=== PATIENT | female | born 1985 | race Caucasian/White ===

== ENCOUNTER 2019-01-19 10:17 | Emergency (ER) | payer BC, OTHER ==
[2019-01-19 10:23] VITALS: TEMP 98.2; BMI 42.1
[2019-01-19] MEDS ORDERED: ACETAMINOPHEN 1000 MG/100 ML VIAL (NON FORMULARY) IVPB ONE (11:40)
[2019-01-19] MEDS ORDERED: SODIUM CHLORIDE 1,000 ML IV STA (11:40)
--- NOTE | 2019-01-19 11:40 | PDOC ---
History of Present Illness - General History Source: Patient Exam Limitations: No Limitations - History of Present Illness Initial Comments: 33 yo F no significant PMH presents with B/L pelvic pain. Denies N/V/D, f/c, rectal bleeding, dysuria, vaginal discharge. She was evaluated by electrical maintenance engineer, who sent urine, obtained pelvic sono, no explanation for the pain. Referred to the ED for further evaluation, as the pain is worsening. <Racheal Tse - Last Filed: 01/19/19 11:41> <Shilpa Barrientos - Last Filed: 01/19/19 18:22> - General Chief Complaint: Pain Stated Complaint: LWR ABD PAIN Time Seen by Provider: 01/19/19 11:27 Past History - Past Medical History COPD: No - Suicide/Smoking/Psychosocial Hx Smoking History: Never smoked Have you smoked in the past 12 months: No Information on smoking cessation initiated: No Hx Alcohol Use: No Drug/Substance Use Hx: No <Racheal Tse - Last Filed: 01/19/19 11:41> <Shilpa Barrientos - Last Filed: 01/19/19 18:22> - Past Medical History Allergies/Adverse Reactions: Allergies Allergy/AdvReac Type Severity Reaction Status Date / Time No Known Allergies Allergy Verified 02/04/18 01:31 Home Medications: Ambulatory Orders Ibuprofen 600 mg PO QID PRN #20 tablet 02/04/18 Loratadine [Claritin] 10 mg PO PRN 02/04/18 Ibuprofen 800 mg PO TID PRN #21 tablet MDD 3 tabs 01/19/19 Review of Systems - Review of Systems Able to Perform ROS?: Yes Comments:: GENERAL/CONSTITUTIONAL: No fever or chills. No weakness. HEAD, EYES, EARS, NOSE AND THROAT: No change in vision. No ear pain or discharge. No sore throat. CARDIOVASCULAR: No chest pain or shortness of breath. RESPIRATORY: No cough, wheezing, or hemoptysis. GASTROINTESTINAL: No nausea, vomiting, diarrhea or constipation. +Urge to defecate. GENITOURINARY: No dysuria, frequency, or change in urination. MUSCULOSKELETAL: No joint or muscle swelling or pain. No neck or back pain. SKIN: No rash. NEUROLOGIC: No headache, vertigo, loss of consciousness, or change in strength/ sensation. ENDOCRINE: No increased thirst. No abnormal weight change. HEMATOLOGIC/LYMPHATIC: No anemia, easy bleeding, or history of blood clots. ALLERGIC/IMMUNOLOGIC: No hives or skin allergy. <Racheal Tse - Last Filed: 01/19/19 11:41> *Physical Exam - Vital Signs Last Vital Signs Temp Pulse Resp BP Pulse Ox 98.2 F 88 18 140/77 100 01/19/19 10:19 01/19/19 10:19 01/19/19 10:19 01/19/19 10:19 01/19/19 10:19 - Physical Exam Comments: GENERAL: Awake, alert, and fully oriented, in no acute distress. Appears uncomfortable. HEAD: No signs of trauma EYES: PERRLA, EOMI, sclera anicteric, conjunctiva clear ENT: Auricles normal inspection, hearing grossly normal, nares patent, oropharynx clear without exudates. Moist mucosa NECK: Normal ROM, supple, no lymphadenopathy, JVD, or masses LUNGS: Breath sounds equal, clear to auscultation bilaterally. No wheezes, and no crackles HEART: Regular rate and rhythm, normal S1 and S2, no murmurs, rubs or gallops ABDOMEN: Soft, BLQ tenderness with guarding, normoactive bowel sounds. No rebound. No masses EXTREMITIES: Normal range of motion, no edema. No clubbing or cyanosis. No cords, erythema, or tenderness NEUROLOGICAL: Cranial nerves II through XII grossly intact. Normal speech, normal gait. Motor and sensation intact SKIN: Warm, Dry, normal turgor, no rashes or lesions noted. <Racheal Tse - Last Filed: 01/19/19 11:41> - Vital Signs Last Vital Signs Temp Pulse Resp BP Pulse Ox 98.2 F 88 18 140/77 100 01/19/19 10:19 01/19/19 10:19 01/19/19 10:19 01/19/19 10:19 01/19/19 10:19 <Shilpa Barrientos - Last Filed: 01/19/19 18:22> Moderate Sedation - Procedure Monitoring Vital Signs: Procedure Monitoring Vital Signs Temperature 98.2 F 01/19/19 10:19 Pulse Rate 88 01/19/19 10:19 Respiratory Rate 18 01/19/19 10:19 Blood Pressure 140/77 01/19/19 10:19 O2 Sat by Pulse Oximetry (%) 100 01/19/19 10:19 <Racheal Tse - Last Filed: 01/19/19 11:41> - Procedure Monitoring Vital Signs: Procedure Monitoring Vital Signs Temperature 98.2 F 01/19/19 10:19 Pulse Rate 88 01/19/19 10:19 Respiratory Rate 18 01/19/19 10:19 Blood Pressure 140/77 01/19/19 10:19 O2 Sat by Pulse Oximetry (%) 100 01/19/19 10:19 <Shilpa Barrientos - Last Filed: 01/19/19 18:22> ED Treatment Course - LABORATORY CBC & Chemistry Diagram: 01/19/19 11:53 01/19/19 11:53 - ADDITIONAL ORDERS Additional order review: Laboratory Results 01/19/19 01/19/19 01/19/19 16:20 11:53 11:23 Sodium 135 L Potassium 5.5 H Chloride 105 Carbon Dioxide 24 Anion Gap 6 L BUN 11 Creatinine 0.6 Creat Clearance w eGFR > 60 Random Glucose 97 Calcium 8.9 Total Bilirubin 0.3 AST 44 H ALT 31 Alkaline Phosphatase 101 Total Protein 7.4 Albumin 3.4 Lipase 156 Urine Color Yellow Cancelled Urine Appearance Clear Cancelled Urine pH 5.5 Cancelled Ur Specific [place] 1.005 L Cancelled Urine Protein Negative Cancelled Urine Glucose (UA) Negative Cancelled Urine Ketones Negative Cancelled Urine Blood Trace H Cancelled Urine Nitrite Negative Cancelled Urine Bilirubin Negative Cancelled Urine Urobilinogen 0.2 Cancelled Ur Leukocyte Esterase Negative Cancelled Urine WBC (Auto) 0-3 Urine RBC (Auto) 0-3 Ur Epithelial Cells 2+ Urine Bacteria 1+ Urine Mucus 1+ Urine HCG, Qual Negative 01/19/19 11:53 RBC 5.01 MCV 80.9 MCHC 33.4 RDW 13.6 MPV 9.6 Neutrophils % 50.0 D Lymphocytes % 40.1 H Monocytes % 5.6 Eosinophils % 3.5 Basophils % 0.8 - Medications Given in the ED: ED Medications Discontinued Medications Generic Name Dose Route Start Last Admin Trade Name Freq PRN Reason Stop Dose Admin Acetaminophen 1,000 mg 01/19/19 11:40 01/19/19 12:03 Ofirmev Injection - IVPB 01/19/19 11:41 1,000 mg ONCE ONE Administration Sodium Chloride 1,000 mls @ 1,000 mls/hr 01/19/19 11:40 01/19/19 12:03 Normal Saline - IV 01/19/19 12:39 1,000 mls/hr ASDIR STA Administration Oxycodone HCl 5 mg 01/19/19 16:32 01/19/19 16:38 Roxicodone - PO 01/19/19 16:33 5 mg ONCE ONE Administration <Shilpa Barrientos - Last Filed: 01/19/19 18:22> *DC/Admit/Observation/Transfer <Racheal Tse - Last Filed: 01/19/19 11:41> <Shilpa Barrientos - Last Filed: 01/19/19 18:22> Diagnosis at time of Disposition: Pelvic pain - Discharge Dispostion Disposition: HOME Condition at time of disposition: Stable - Prescriptions Prescriptions: Ibuprofen 800 mg PO TID PRN #21 tablet MDD 3 tabs PRN Reason: Pain Level 6-10 - Patient Instructions Printed Discharge Instructions: DI for Pelvic Pain Additional Instructions: please followup with your plug saw operator hand picker your medication at the [facility] Print Language: SPA
[2019-01-19] MEDS ORDERED: ACETAMINOPHEN INJECTION 100 ML IVPB ONE (11:45)
[2019-01-19 12:06] LABS: BASO % 0.8 % (0-2.0); EOS % 3.5 % (0-4.5); HEMATOCRIT 40.5 % (32.4-45.2); HEMOGLOBIN 13.6 GM/dL (10.7-15.3); LYMPH % 40.1 % (8-40); MCHC 33.4 g/dl (32.0-36.0); MEAN CELL VOLUME 80.9 fl (80-96); MEAN PLT VOLUME 9.6 fl (7.5-11.1); MONO % 5.6 % (3.8-10.2); PLATELET COUNT 279 K/MM3 (134-434); RBC 5.01 M/mm3 (3.60-5.2); RDW 13.6 % (11.6-15.6); WHITE BLOOD COUNT 8.3 K/mm3 (4.0-10.0)
[2019-01-19 12:44] LABS: ALBUMIN 3.4 g/dl (3.4-5.0); ALK PHOS 101 U/L (45-117); ANION GAP 6 MMOL/L (8-16); BILIRUBIN,TOTAL 0.3 mg/dL (0.2-1); BLOOD UREA NITROGEN 11 mg/dL (7-18); CALCIUM 8.9 mg/dL (8.5-10.1); CHLORIDE 105 mmol/L (98-107); CO2 24 mmol/L (21-32); CREATININE 0.6 mg/dL (0.55-1.3); GLUCOSE,RANDOM 97 mg/dL (74-106); LIPASE 156 U/L (73-393); POTASSIUM 5.5 mmol/L (3.5-5.1); SGOT/AST 44 U/L (15-37); SGPT/ALT 31 U/L (13-61); SODIUM 135 mmol/L (136-145); TOT PROT 7.4 g/dl (6.4-8.2)
[2019-01-19] MEDS ORDERED: oxyCODONE HCL 5 MG TABLET PO ONE (16:32)
[2019-01-19] MEDS ORDERED: oxyCODONE HCL 5 MG TABLET ONE (16:37)
[2019-01-19 17:47] LABS: PH,URINE 5.5 (5.0-8.0); URINE APPEARANCE CLEAR; URINE BILIRUBIN NEGATIVE (<2.0 mg/dL); URINE COLOR YELLOW; URINE GLUCOSE (UA) NEGATIVE (NEGATIVE); URINE KETONE NEGATIVE (NEGATIVE); URINE NITRITE NEGATIVE (NEGATIVE); URINE PROTEIN NEGATIVE (NEGATIVE); URINE UROBILINOGEN 0.2 mg/dL (0.2-1.0)
[2019-01-19 17:48] LABS: EPI CELLS 2+ /HPF (FEW); URINE BACTERIA 1+ /hpf (NONE SEEN); URINE LEUK ESTERASE NEGATIVE (NEGATIVE)
[2019-01-19 17:49] LABS: URINE MUCUS 1+
[2019-01-19 18:33] VITALS: BP 135/75; PULSE 94
== END 2019-01-19 18:34 | disposition home or self-care (01) ==
LOC: JER 10:17
PROC: 3E033NZ Introduction of Analgesics, Hypnotics, Sedatives into Peripheral Vein, Percutaneous Approach (ICD-10-PCS; principal; 2019-01-19)
DX: R10.2 Pelvic and perineal pain (principal)
CPT/HCPCS: 36415; 74177-TC; 80053; 81003; 81015; 83690; 84703; 85025; 87086; 99283-25; J0131; J7030

== ENCOUNTER 2019-01-29 13:15 | Day surgery (SDC) | payer OTHER ==
[2019-01-28 15:33] VITALS: BMI 42.1
[2019-01-29] MEDS ORDERED: KETOROLAC TROMETHAMINE 30 MG/1 ML VIAL ONE (13:46)
[2019-01-29] MEDS ORDERED: ceFAZolin SODIUM 1 GM VIAL ONE (13:46)
[2019-01-29] MEDS ORDERED: SODIUM CHLORIDE 0.9% P/F 10 ML VIAL IJ ONE (13:46)
[2019-01-29] MEDS ORDERED: DEXAMETHASONE SOD PHOSPHATE 4 MG/1 ML VIAL ONE (13:46)
[2019-01-29] MEDS ORDERED: LIDOCAINE HCL/PF 2% SDV 5ML VIAL ONE ×2 (13:46→13:57)
[2019-01-29] MEDS ORDERED: PROPOFOL 20 ML ONE ×2 (13:48→16:03)
[2019-01-29] MEDS ORDERED: SUCCINYLCHOLINE CHLORIDE 200 MG/10 ML VIAL ONE (13:48)
[2019-01-29] MEDS ORDERED: MIDAZOLAM HCL 2 MG/2 ML SINGLE DOSE VIAL ONE (13:49)
[2019-01-29] MEDS ORDERED: ROCURONIUM BROMIDE 50 MG/5 ML VIAL ONE (13:49)
[2019-01-29] MEDS ORDERED: BUPIVACAINE HCL/PF 0.5% (5MG/ML) 10 ML VIAL ONE (13:53)
[2019-01-29] MEDS ORDERED: ONDANSETRON 4 MG/2 ML VIAL IVPUSH PRN ×2 (15:27→17:48)
[2019-01-29] MEDS ORDERED: oxyCODONE HCL 5 MG TABLET PO PRN ×2 (15:27→17:48)
[2019-01-29] MEDS ORDERED: ACETAMINOPHEN 1000 MG/100 ML VIAL (NON FORMULARY) IVPB ONE (15:27)
[2019-01-29] MEDS ORDERED: LACTATED RINGERS SOLUTION 1,000 ML IV SCH (15:30)
[2019-01-29] MEDS ORDERED: GLYCOPYRROLATE 0.2 MG/1 ML VIAL ONE (15:31)
[2019-01-29] MEDS ORDERED: NEOSTIGMINE METHYLSULFATE 0.5 MG/ML - 10 ML MDV ONE (15:32)
--- NOTE | 2019-01-29 16:20 | OP ---
Operative Note - Note: Operative Date: 01/29/19 Pre-Operative Diagnosis: pelvic pain Operation: intraoperative consultation Findings: calcified epiploic appendage of the sigmoid and 5 mm anterior sigmoid avulsed adhesion. Post-Operative Diagnosis: Same as Pre-op Surgeon: Kentrell Treviño Anesthesia: General Specimens Removed: none Estimated Blood Loss (mls): 0
[2019-01-29] MEDS ORDERED: DESFLURANE GAS 240 ML BOTTLE IH ONE (16:34)
[2019-01-29] MEDS ORDERED: IBUPROFEN 800 MG/8 ML IJ IVPB PRN (17:48)
[2019-01-29] MEDS ORDERED: IBUPROFEN 600 MG TABLET (FP) PO PRN (17:48)
[2019-01-29] MEDS ORDERED: ELECTROLYTE-148 SOLN 1,000 ML IV SCH (18:00)
--- NOTE | 2019-01-29 18:24 | OP ---
DATE OF OPERATION: 01/29/2019 PREOPERATIVE DIAGNOSIS: Pelvic pain. POSTOPERATIVE DIAGNOSIS: Pelvic pain. PROCEDURE: Intraoperative general sugery consultation. SURGEON: Kentrell Treviño MD OPERATIVE FINDINGS: I was called to the operating room by Dr. Fox Echols for evaluation of the patient's sigmoid colon just after the performance of a right laparoscopic ovarian cystectomy. The findings at the time of my consultation were a calcified epiploic appendage of the sigmoid colon and a 5-mm anterior sigmoid probable avulsed adhesion. The rest of the findings were unremarkable. There was no active bleeding, and the rest of the findings were unremarkable. PROCEDURE: With the patient already under general anesthesia and laparoscopic RISK MANAGEMENT DIRECTOR surgery, exploration was carried out, and the previously noted findings were observed. At this point, I left the operating room, and the rest of the procedure was carried out by the Gynecological surgeons, Dr. Echols and Dr. Hall. ESTIMATED BLOOD LOSS: None. REPLACEMENTS: None. SPECIMENS: None from General Surgery. I, Kentrell Treviño MD, was physically present in the operating room from the time I was called until completion of my intraoperative consultation. MD JOSH [id number]
[2019-01-29] MEDS ORDERED: oxyCODONE HCL 5 MG TABLET PO ONE ×2 (19:10→20:00)
--- NOTE | 2019-01-29 19:45 | HP ---
History & Physical Update - History History: No Change - Physical Physical: No Change - Assessment Assessment: No Change - Plan Plan: No Change (H&P reviwed , no changes , for laparoscopy rt ovarian cystectomy, all necessary procedure)
--- NOTE | 2019-01-29 19:51 | OP ---
Operative Note - Note: Operative Date: 01/29/19 Pre-Operative Diagnosis: chronic pelvic pain, RT ovarian cyst, r/o PID, vs endometriosis Operation: laparoscopy, RT ovarian cystectomy, intra op surgical consult Findings: small rt ovarian cyst 3 cm epiploic adhesion anterior sigmoid adherent to posterior uterus Surgeon: Fox Echols Neurophysiologist: German Hall Anesthesiologist/MAINTAINER PLANT: You Claire Anesthesia: General Estimated Blood Loss (mls): 50 Blood Volume Replaced (mls): 0 Operative Report Dictated: Yes
[2019-01-29] MEDS ORDERED: oxyCODONE HCL 5 MG TABLET ONE (19:57)
[2019-01-29 20:40] VITALS: BP 133/76; PULSE 90; TEMP 98
--- NOTE | 2019-01-29 21:38 | OP ---
DATE OF OPERATION: 01/29/2019 PREOPERATIVE DIAGNOSES: Chronic pelvic pain, right ovarian cyst, rule out right hydrosalpinx, rule out endometriosis. POSTOPERATIVE DIAGNOSES: Right ovarian cyst and epiploic of the anterior sigmoid colon to the posterior uterine wall. SURGEON: Carloz Church MD ASSISTANT HAIRSTYLIST: German Hall MD ANESTHESIA: General. ANESTHESIOLOGIST: ROMAINE Mendez ESTIMATED BLOOD LOSS: 50 mL. OPERATION: The patient was taken to the operating room. In adequate dorsal lithotomy position, examination under anesthesia revealed external genitalia to be normal, vagina was normal. Cervix was clean; no lesions. Uterus was normal size. Adnexa, no masses were palpable. Then, with the weighted speculum in the vagina, the anterior lip of the cervix was grasped with a single-toothed tenaculum and the uterine cavity was sound to 8 cm. Hulka was introduced into the uterine cavity for manipulation and then Siddiqi was inserted and patient was prepped and draped for a pelvoscopy. A small infraumbilical incision was made with the knife and then 5-mm Visiport under direct vision was inserted and then the patient was placed in deep lithotomy position and camera was introduced. Then, under direct vision, a 5-mm trocar was introduced through the left hypogastrium and another 5-mm trocar through the right hypogastric area. Then, upper abdomen was checked. Bowels were pushed up. There was a small 5-mm epiploic calcified to the anterior sigmoid, which was adherent to the posterior uterine wall, and during the uterine manipulation, the epiploic came off the anterior sigmoid. Then, both tubes were normal. No cul-de-sac adhesion. Bladder was normal. No sign of endometriosis. There was a 3-cm right ovarian cyst and the right ovary was elongated with the cyst at the end of the ovary. Upper abdomen was checked and no adhesions were seen. Then, the right ovary was grasped with a grasper and, then, with the LigaSure cautery, the cyst was removed from the right ovary and the left ovary appeared to be normal. Pelvic cavity was several times irrigated. No active bleeding was seen. Then, Dr. Treviño, surgeon, was called in for intraoperative consultation and evaluation of the anterior wall of the sigmoid where the epiploic adhesion appears to have come off. No active bleeding or bubbling seen at this site. Dr. Treviño evaluated the area and manipulated it and there was no evidence of tear. No bleeding was seen. Then, Dr. Treviño okayed the termination of the procedure and then the procedure was terminated. The abdomen was emptied of all the gases and the ports were closed with interrupted suture of 3-0 Vicryl and the skin was closed with Dermabond glue. The patient tolerated the procedure well and left the OR in good condition. CARLOZ CHURCH M.D. [id number]
--- NOTE | 2019-02-02 12:10 | PATH ---
Surgical Pathology Report Patient Name: ALTAGRACIA MARROQUIN [facility]. Rec. #: [id number] /Age/Gender: 1985 (Age: 33) / F Account: [id number] Location: [facility] SURGICAL Taken: 01/29/2019 Received: 01/30/2019 Reported: 02/02/2019 Physicians: Fox Echols M.D. Specimen(s) Received CYST, RIGHT OVARIAN Clinical History Chronic salpingitis, pelvic pain Final Diagnosis RIGHT OVARIAN CYST, CYSTECTOMY: BENIGN OVARIAN AND FIBROUS TISSUE WITH EXTENSIVE THERMAL ARTIFACT, AND FOCAL AREA SUGGESTIVE OF ENDOMETRIOSIS. Electronically Signed Grayson Bone M.D. Gross Description Received in formalin labeled "ovarian cyst right side," is a 0.9 x 0.7 x 0.1 cm graves portion of soft tissue, possibly consistent with a portion of cyst. The specimen is trisected and entirely submitted in one cassette. /01/30/2019 saudi01/30/2019
== END 2019-01-29 20:35 | disposition home or self-care (01) ==
LOC: JASU-SURG 13:15
PROVIDERS: ATTEND Obstetrics & Gynecology
PROC: 0UB04ZZ Excision of Right Ovary, Percutaneous Endoscopic Approach (ICD-10-PCS; principal; 2019-01-29 14:30)
DX: N83.201 Unspecified ovarian cyst, right side (principal); K63.89 Other specified diseases of intestine
CPT/HCPCS: 84703; 88304-TC; 94760; J0131

== ENCOUNTER 2019-06-10 13:24 | Emergency (ER) | payer OTHER ==
[2019-06-10 13:35] VITALS: TEMP 98.7; BMI 42.5
--- NOTE | 2019-06-10 13:45 | PDOC ---
Rapid Medical Evaluation Chief Complaint: Bite Time Seen by Provider: 06/10/19 13:32 Medical Evaluation: Allergies Allergy/AdvReac Type Severity Reaction Status Date / Time No Known Drug Allergies Allergy Verified 01/29/19 19:27 FRUIT AdvReac Unknown Rash Uncoded 01/29/19 17:56 Vital Signs Temp Pulse Resp BP Pulse Ox 98.7 F 119 H 18 126/87 96 06/10/19 13:33 06/10/19 13:33 06/10/19 13:33 06/10/19 13:33 06/10/19 13:33 06/10/19 13:36 I have performed a brief in-person evaluation of this patient. The patient presents with a chief complaint of:stung by bee to L arm several days ago, now w/ swelling/redness, no f/c. H/o DM Pertinent physical exam findings: tachy to 111 w/ LUE w/ localized swelling/ redness/ttp I have ordered the following:labs The patient will proceed to the ED for further evaluation. 06/10/19 13:46 Discharge Disposition - Diagnosis Cellulitis Qualifiers: Site of cellulitis: extremity Site of cellulitis of extremity: upper extremity Laterality: left Qualified Code(s): L03.114 - Cellulitis of left upper limb - Discharge Dispostion Condition at time of disposition: Stable - Referrals - Patient Instructions - Post Discharge Activity
[2019-06-10] MEDS ORDERED: SODIUM CHLORIDE 1,000 ML IV STA (14:03)
[2019-06-10] MEDS ORDERED: ACETAMINOPHEN 1000 MG/100 ML VIAL (NON FORMULARY) IVPB ONE (14:04)
[2019-06-10] MEDS ORDERED: VANCOMYCIN 1 GM in D5W (PRE-DOCKED) 1,000 MG/250 ML IVPB ONE (14:08)
[2019-06-10] MEDS ORDERED: diphenhydrAMINE HCL 25 MG CAPSULE (FP) PO ONE ×3 (14:20→14:50)
--- NOTE | 2019-06-10 14:31 | PDOC ---
History of Present Illness - History of Present Illness Initial Comments: 06/10/19 14:26 34F with pmh of DM2 presents with circular, painful rash over the left forearm after getting stung by a bumblebee (or some other related Hymenoptera-type insect) on Saturday. She saw the insect after the sting and tried to scratch off the sting with her nail. Last night she noticed the rash had spread outwardly and measure her fever orally at 103F. She took 500mg Acetaminophen and 25mg Benadryl at 6:30am this morning which gave her some relief, before presenting to the ER. Denies shortness of breath, chest pain, dysphagia, abdominal pain, vomiting or diarrhea. Measure her blood glucose this am which was 200, unusually high for her. Allery to all fruits, which give her anaphylactic shock <Darin Cano - Last Filed: 06/10/19 16:21> <Leonora Stevens - Last Filed: 06/10/19 16:26> - General Chief Complaint: Bite Stated Complaint: BEE STING Time Seen by Provider: 06/10/19 13:32 Past History - Past Medical History Anemia: No Asthma: No Cancer: No Cardiac Disorders: No CVA: No COPD: No CHF: No Dementia: No Diabetes: Yes GI Disorders: No Disorders: No HTN: No Hypercholesterolemia: Yes Liver Disease: No Seizures: No Thyroid Disease: No - Surgical History Abdominal Surgery: No Appendectomy: Yes (AT AGE 13) Cardiac Surgery: No Cholecystectomy: No Lung Surgery: No Neurologic Surgery: No Orthopedic Surgery: No - Immunization History Immunization Up to Date: No - Suicide/Smoking/Psychosocial Hx Smoking History: Never smoked Have you smoked in the past 12 months: No Information on smoking cessation initiated: No Hx Alcohol Use: No Drug/Substance Use Hx: No Substance Use Type: None Hx Substance Use Treatment: No <Darin Cano - Last Filed: 06/10/19 16:21> <Leonora Stevens - Last Filed: 06/10/19 16:26> - Past Medical History Allergies/Adverse Reactions: Allergies Allergy/AdvReac Type Severity Reaction Status Date / Time No Known Drug Allergies Allergy Verified 01/29/19 19:27 FRUIT AdvReac Unknown Rash Uncoded 01/29/19 17:56 Home Medications: Ambulatory Orders Ibuprofen 800 mg PO TID PRN #21 tablet MDD 3 tabs 01/19/19 Ibuprofen [Motrin -] 600 mg PO QID #28 tablet 01/29/19 Oxycodone HCl/Acetaminophen [Percocet 5-325 mg Tablet] 1 - 2 tab PO Q6H PRN #12 tab MDD 4 01/30/19 Epinephrine [Epipen 2-Lake] 0.3 mg IJ ASDIR #1 kit 06/10/19 Sulfamethoxazole/Trimethoprim [Bactrim Ds -] 1 tab PO BID #14 tablet 06/10/19 Review of Systems - Review of Systems Able to Perform ROS?: Yes Is the patient limited Persian proficient: No Constitutional: No: Symptoms Reported HEENTM: No: Symptoms Reported Respiratory: No: Symptoms reported Cardiac (ROS): No: Symptoms Reported ABD/GI: No: Symptoms Reported : No: Symptoms Reported Musculoskeletal: No: Symptoms Reported Integumentary: Yes: See HPI All Other Systems: Reviewed and Negative <Darin Cano - Last Filed: 06/10/19 16:21> *Physical Exam - Vital Signs Last Vital Signs Temp Pulse Resp BP Pulse Ox 98.7 F 119 H 18 126/87 96 06/10/19 13:33 06/10/19 13:33 06/10/19 13:33 06/10/19 13:33 06/10/19 13:33 - Physical Exam General Appearance: Yes: Nourished, Appropriately Dressed. No: Apparent Distress HEENT: positive: EOMI, LUTHER, Normal ENT Inspection Respiratory/Chest: positive: Lungs Clear, Normal Breath Sounds. negative: Chest Tender, Respiratory Distress Cardiovascular: positive: Regular Rhythm, S1, S2, Tachycardia Gastrointestinal/Abdominal: positive: Normal Bowel Sounds, Flat, Soft. negative : Tender Musculoskeletal: positive: Normal Inspection. negative: CVA Tenderness Integumentary: positive: Other (6x6cm hot, erythematous circular rash with visible epicenter. No fluctuence or drainage. ) Neurologic: positive: Fully Oriented, Alert <Darin Cano - Last Filed: 06/10/19 16:21> - Vital Signs Last Vital Signs Temp Pulse Resp BP Pulse Ox 98.7 F 95 H 18 122/71 97 06/10/19 13:33 06/10/19 15:33 06/10/19 15:33 06/10/19 15:33 06/10/19 15:33 <Leonora Stevens - Last Filed: 06/10/19 16:26> ED Treatment Course - LABORATORY CBC & Chemistry Diagram: 06/10/19 14:22 06/10/19 14:22 <Darin Cano - Last Filed: 06/10/19 16:21> - LABORATORY CBC & Chemistry Diagram: 06/10/19 14:22 06/10/19 14:22 - ADDITIONAL ORDERS Additional order review: Laboratory Results 06/10/19 06/10/19 06/10/19 14:29 14:29 14:22 Sodium 134 L Potassium 4.6 Chloride 100 Carbon Dioxide 26 Anion Gap 8 BUN 15.1 Creatinine 0.9 Est GFR (CKD-EPI)AfAm 98.06 Est GFR (CKD-EPI)NonAf 84.60 Random Glucose 228 H Calcium 9.6 Total Bilirubin 0.2 AST 83 H ALT 159 H Alkaline Phosphatase 119 H Total Protein 7.9 Albumin 3.9 Urine Color Yellow Urine Appearance Clear Urine pH 5.0 Ur Specific [place] 1.022 Urine Protein Negative Urine Glucose (UA) Negative Urine Ketones Negative Urine Blood 3+ H Urine Nitrite Positive H D Urine Bilirubin Negative Urine Urobilinogen 0.2 Ur Leukocyte Esterase Negative Urine WBC (Auto) 2 Urine RBC (Auto) 8.4 Urine Casts (Auto) 2 U Epithel Cells (Auto) 3.4 Urine Bacteria (Auto) 137.2 Urine HCG, Qual Negative 06/10/19 14:22 RBC 4.96 MCV 79.2 L MCHC 33.3 RDW 13.6 MPV 9.6 Neutrophils % 52.3 Lymphocytes % 38.1 Monocytes % 4.3 Eosinophils % 4.1 Basophils % 1.2 - Medications Given in the ED: ED Medications Discontinued Medications Generic Name Dose Route Start Last Admin Trade Name Freq PRN Reason Stop Dose Admin Acetaminophen 1,000 mg 06/10/19 14:04 06/10/19 14:45 Ofirmev Injection - IVPB 06/10/19 14:05 1,000 mg ONCE ONE Administration Diphenhydramine HCl 12.5 mg 06/10/19 14:10 06/10/19 15:26 Benadryl Injection - IVPUSH 06/10/19 14:11 Not Given ONCE ONE Diphenhydramine HCl 50 mg 06/10/19 14:20 06/10/19 14:50 Benadryl - PO 06/10/19 14:21 50 mg ONCE ONE Administration Sodium Chloride 1,000 mls @ 1,000 mls/hr 06/10/19 14:03 06/10/19 14:45 Normal Saline - IV 06/10/19 15:02 1,000 mls/hr ASDIR STA Administration Trimethoprim/Sulfamethoxazole 1 each 06/10/19 15:00 06/10/19 15:33 Bactrim Ds - PO 06/10/19 15:01 1 each ONCE ONE Administration Vancomycin HCl 1,000 mg 06/10/19 14:08 06/10/19 15:26 Vancomycin (Pre-Docked) IVPB 06/10/19 14:09 Not Given ONCE ONE Protocol <Leonora Stevens - Last Filed: 06/10/19 16:26> Medical Decision Making - Medical Decision Making 06/10/19 14:59 34f with pmh of dm2 presenting with insect bite cellulitis. Will obtain labs but treat patient with PO antibiotics (Bactrim) to cover MRSA and Beta-hemolytic streptoccocus. Will also give Benadryl and NS bolus for tachycardia and Tylenol for her fever and pain. Patient admits to some relief. Will discharge home with oral abx and return precautions. <Darin Cano - Last Filed: 06/10/19 16:21> - Medical Decision Making oral abx x 1 week course, bactrim BID. for cellulitis return precautions, toxicity/fever or worsening infection, no improvement despite oral trial abx. epi pen refilled as she used it up from prior use 2 days ago from bee sting 06/10/19 16:26 <Leonora Stevens - Last Filed: 06/10/19 16:26> *DC/Admit/Observation/Transfer - Discharge Dispostion Decision to Admit order: No <Darin Cano - Last Filed: 06/10/19 16:21> <Leonora Stevens - Last Filed: 06/10/19 16:26> Diagnosis at time of Disposition: Cellulitis Qualifiers: Site of cellulitis: extremity Site of cellulitis of extremity: upper extremity Laterality: left Qualified Code(s): L03.114 - Cellulitis of left upper limb - Discharge Dispostion Disposition: HOME Condition at time of disposition: Stable - Prescriptions Prescriptions: Epinephrine [Epipen 2-Lake] 0.3 mg IJ ASDIR #1 kit Sulfamethoxazole/Trimethoprim [Bactrim Ds -] 1 tab PO BID #14 tablet - Patient Instructions Additional Instructions: Come back to the emergency department for any new, worsening or concerning symptoms. balancing machine set up worker your antibiotics from the pharcy and use for 7 days twice a day. You were also prescribed another set of epipens.
[2019-06-10 14:36] LABS: BASO % 1.2 % (0-2.0); EOS % 4.1 % (0-4.5); HEMATOCRIT 39.3 % (32.4-45.2); HEMOGLOBIN 13.1 GM/dL (10.7-15.3); LYMPH % 38.1 % (8-40); MCH 26.4 pg (25.7-33.7); MCHC 33.3 g/dl (32.0-36.0); MEAN CELL VOLUME 79.2 fl (80-96); MEAN PLT VOLUME 9.6 fl (7.5-11.1); MONO % 4.3 % (3.8-10.2); NEUT % 52.3 % (42.8-82.8); PLATELET COUNT 281 K/MM3 (134-434); RBC 4.96 M/mm3 (3.60-5.2); RDW 13.6 % (11.6-15.6); WHITE BLOOD COUNT 8.7 K/mm3 (4.0-10.0)
[2019-06-10] MEDS ORDERED: ACETAMINOPHEN INJECTION 100 ML IVPB ONE (14:36)
[2019-06-10 14:51] LABS: EPI CELLS 3.4 /HPF (0-5/HPF); HYALINE CASTS 2 /lpf (0-8); URINE APPEARANCE CLEAR; URINE BACTERIA 137.2 /hpf (NEGATIVE); URINE BILIRUBIN NEGATIVE (NEGATIVE); URINE COLOR YELLOW; URINE GLUCOSE (UA) NEGATIVE (NEGATIVE); URINE KETONE NEGATIVE (NEGATIVE); URINE LEUK ESTERASE NEGATIVE (NEGATIVE); URINE NITRITE POSITIVE (NEGATIVE); URINE PROTEIN NEGATIVE (NEGATIVE); URINE UROBILINOGEN 0.2 mg/dL (0.2-1.0); URINE WBC 2 /hpf (0-5)
[2019-06-10] MEDS ORDERED: SULFAMETHOXAZOLE/TRIMETHOPRIM 800MG/160MG D.S. TABLET PO ONE (15:00)
[2019-06-10 15:17] LABS: URINE RBC 8.4 /hpf (0-4)
[2019-06-10 15:18] LABS: ALBUMIN 3.9 g/dl (3.4-5.0); BILIRUBIN,TOTAL 0.2 mg/dL (0.2-1); BLOOD UREA NITROGEN 15.1 mg/dL (7-18); CALCIUM 9.6 mg/dL (8.5-10.1); CREATININE 0.9 mg/dL (0.55-1.3); POTASSIUM 4.6 mmol/L (3.5-5.1); TOT PROT 7.9 g/dl (6.4-8.2)
[2019-06-10] MEDS ORDERED: SULFAMETHOXAZOLE/TRIMETHOPRIM 800MG/160MG D.S. TABLET ONE (15:28)
[2019-06-10 15:33] VITALS: BP 122/71; PULSE 95
--- NOTE | 2019-06-10 15:57 | PDOC ---
Documentation entered by Viral Jasmine SCRIBE, acting as scribe for Leonora Stevens MD. Leonora Stevens MD: This documentation has been prepared by the Kenroy brown Joel, SCRIBE, under my direction and personally reviewed by me in its entirety. I confirm that the documentation accurately reflects all work, treatment, procedures, and medical decision making performed by me. Attending Attestation - Resident Resident Name: RachaelDarin - ED Attending Attestation I have performed the following: I have examined & evaluated the patient, The case was reviewed & discussed with the resident, I agree w/resident's findings & plan - HPI HPI: 06/10/19 14:32 The patient is a 34 year old female with a significant PMH of DM, hyperlipidemia , and food allergies who presents to the emergency department for evaluation of progressive left forearm swelling and redness after bee sting to the left arm about 2 days ago. at that time, she was stung by bee, gave her self epi inj, did not come to the hospital, for the allergic reaction. no airway compromise at the time. The patient reports developing redness, pain, swelling and tingling in her forearm today with associated fever, Tmax 103F. She reports taking Tylenol and Benadryl this morning to some relief. last dose at 6AM. Allergies: Fruit. Past Medical History: As noted above. Social history: Lives with family. No tobacco, ETOH or drug use. Surgical history: Appendectomy. Meds: as documented in EMR PMD: None reported. 06/10/19 15:50 - Physicial Exam PE: 06/10/19 15:52 Agree with the resident's HPI and PE as documented in the electronic medical record. NAD, well appearing, EOMI, PERRL, MMM, nl conjunctiva, anicteric; neck supple. lungs clear, tachycardic, abdomen soft nontender. Back nontender. MAGUIRE x4, no focal neuro deficits. No peripheral edema. normal color for ethnicity, WWP. left forearm with area of erythema, warmth and central sting site; no purulence , no crepitus. no discharge or odor. FROM in the elbow/wrist and upper extremities. - Medical Decision Making 06/10/19 15:53 See HPI for details. Prior notes reviewed, including admissions, discharges and consultations. Vital signs reviewed, +tachy. no fever here Vital Signs Temp Pulse Resp BP Pulse Ox 98.7 F 95 H 18 122/71 97 06/10/19 13:33 06/10/19 15:33 06/10/19 15:33 06/10/19 15:33 06/10/19 15:33 laboratory results and imaging reviewed, basic labs and lytes wnl, reassuring no cultures indicated ED course -interventions: IVF, tylenol, reassess oral abx bactrim trial x 10 days appearing very much like cellulitis, nonpurulent, no active discharge no firmness or crepitus doubt abscess, no palp fluctuance/firmness doubt nec fasciitis or vascular compromise or compartment trial of abx x 2-3 days, if failing outpatient abx, return sooner to ED if decompensation and may need IV abx given medical issues very strict return precautions. area demarcated ice to the area advised/cool compresses. erythema already improving from the area of demarcation. VS rechecked, improved, tachy down, reassuring. pt has pain controlled, feels better, amenable to the plan as outlined, oral abx for cellulitis tx. Pt to be discharged in stable condition. Patient made aware of clinical impression, treatment recommendations and disposition plan, return precautions discussed (including but not limited to new or persistent/worsening symptoms, pain, fevers, or signs of infection, chest pain, respiratory distress, inability to tolerate oral intake, dehydration, syncope, or neurologic changes) . Follow up with PMD as recommended, follow up information provided, take medications as instructed for duration of time. continue with supportive care, avoid triggers and precipitants. All questions answered to patient's satisfaction and expressed understanding and comfort with this. At the time of discharge, the patient is alert, clinically improved, tolerating po and verbalizes understanding of instructions, satisfied with the care received and felt comfortable with the plan. Patient does not suffer from an acute life- threatening medical condition at this time and is safe for outpatient follow- up. 06/10/19 15:57 06/10/19 16:25
== END 2019-06-10 16:36 | disposition home or self-care (01) ==
LOC: JER 13:24
PROC: 3E033NZ Introduction of Analgesics, Hypnotics, Sedatives into Peripheral Vein, Percutaneous Approach (ICD-10-PCS; principal; 2019-06-10)
PROC: 3E0337Z Introduction of Electrolytic and Water Balance Substance into Peripheral Vein, Percutaneous Approach (ICD-10-PCS; 2019-06-10)
DX: L03.114 Cellulitis of left upper limb (principal); E11.9 Type 2 diabetes mellitus without complications; E78.00 Pure hypercholesterolemia, unspecified
CPT/HCPCS: 36415; 80053; 81003; 84703; 85025; 96361; 96374; 99283-25; J0131; J7030

== ENCOUNTER 2019-07-01 09:46 | Emergency (ER) | payer OTHER ==
[2019-07-01 10:01] VITALS: TEMP 98; BMI 44.1
[2019-07-01] MEDS ORDERED: SODIUM CHLORIDE 1,000 ML IV STA (10:18)
[2019-07-01] MEDS ORDERED: PANTOPRAZOLE SODIUM 40 MG in SODIUM CHLORIDE 100 ML IVPB ONE (10:18)
[2019-07-01] MEDS ORDERED: KETOROLAC TROMETHAMINE 30 MG/1 ML VIAL IVPUSH ONE (10:18)
[2019-07-01] MEDS ORDERED: ONDANSETRON 4 MG/2 ML VIAL IVPUSH ONE (10:25)
[2019-07-01] MEDS ORDERED: KETOROLAC TROMETHAMINE 30 MG/1 ML VIAL ONE (10:29)
[2019-07-01] MEDS ORDERED: ONDANSETRON 4 MG/2 ML VIAL ONE (10:29)
[2019-07-01] MEDS ORDERED: PANTOPRAZOLE SODIUM 40 MG/100 ML BAG IVPB ONE (10:29)
[2019-07-01 10:40] LABS: BASO % 0.5 % (0-2.0); EOS % 3.2 % (0-4.5); HEMATOCRIT 40.3 % (32.4-45.2); HEMOGLOBIN 13.2 GM/dL (10.7-15.3); LYMPH % 40.2 % (8-40); MCH 26.2 pg (25.7-33.7); MCHC 32.9 g/dl (32.0-36.0); MEAN CELL VOLUME 79.6 fl (80-96); MEAN PLT VOLUME 9.7 fl (7.5-11.1); NEUT % 51.1 % (42.8-82.8); PLATELET COUNT 260 K/MM3 (134-434); RBC 5.06 M/mm3 (3.60-5.2); RDW 13.3 % (11.6-15.6); WHITE BLOOD COUNT 7.4 K/mm3 (4.0-10.0)
--- NOTE | 2019-07-01 11:08 | PDOC ---
History of Present Illness - General Chief Complaint: Pain Stated Complaint: ABD. PAIN Time Seen by Provider: 07/01/19 10:13 History Source: Patient Exam Limitations: No Limitations - History of Present Illness Travel History: No Initial Comments: 07/01/19 10:13 34-year-old female presents to ED with upper abdominal pain along with nausea for the past month. Patient states was prescribed antibiotics last week by her primary care physician for H. pylori which she has been on with no improvement of symptoms. Patient has no urinary complaints irregular menses, diarrhea or constipation. Patient denies recent travel or recent change in weight. Timing/Duration: reports: constant Quality: reports: mild, burning, cramping Abdominal Pain Onset Location: reports: LUQ, epigastric Pain Radiation: reports: no radiation Activities at Onset: reports: none Aggravating Factors: improves with: None Alleviating Factors: improves with: None Past History - Travel Traveled outside of the country in the last 30 days: No Close contact w/someone who was outside of country & ill: No - Past Medical History Allergies/Adverse Reactions: Allergies Allergy/AdvReac Type Severity Reaction Status Date / Time No Known Drug Allergies Allergy Verified 07/01/19 09:58 FRUIT AdvReac Unknown Rash Uncoded 07/01/19 09:58 Home Medications: Ambulatory Orders Amoxicillin - [Amoxicillin 500mg Capsule -] 500 mg PO BID 07/01/19 Clarithromycin [Biaxin -] 500 mg PO BID 07/01/19 Glipizide/Metformin HCl [Glipizide-Metformin 5-500 mg] 1 each PO BID 07/01/19 Hydrochlorothiazide 12.5 mg PO DAILY 07/01/19 Omeprazole 40 mg PO DAILY 07/01/19 Rosuvastatin [Crestor -] 5 mg PO DAILY 07/01/19 Anemia: No Asthma: No Cancer: No Cardiac Disorders: No CVA: No COPD: No CHF: No Dementia: No Diabetes: Yes GI Disorders: No Disorders: No HTN: No Hypercholesterolemia: Yes Liver Disease: No Seizures: No Thyroid Disease: No - Surgical History Abdominal Surgery: No Appendectomy: Yes (AT AGE 13) Cardiac Surgery: No Cholecystectomy: No Lung Surgery: No Neurologic Surgery: No Orthopedic Surgery: No - Immunization History Immunization Up to Date: No - Suicide/Smoking/Psychosocial Hx Smoking History: Never smoked Have you smoked in the past 12 months: No Information on smoking cessation initiated: No Hx Alcohol Use: No Drug/Substance Use Hx: No Substance Use Type: None Hx Substance Use Treatment: No Patient Lives Alone: No Lives with/in: spouse/SO Abd/GI Specific PMHX - Complaint Specific PMHX Other History: h pylori Review of Systems - Review of Systems Able to Perform ROS?: Yes Constitutional: No: Symptoms Reported HEENTM: No: Symptoms Reported Respiratory: No: Symptoms reported Cardiac (ROS): No: Symptoms Reported ABD/GI: Yes: Nausea : No: Symptoms Reported Musculoskeletal: No: Symptoms Reported Integumentary: No: Symptoms Reported Neurological: No: Symptoms reported Hematologic/Lymphatic: No: Symptoms Reported *Physical Exam - Vital Signs Last Vital Signs Temp Pulse Resp BP Pulse Ox 98 F 100 H 19 139/100 98 07/01/19 09:55 07/01/19 09:55 07/01/19 09:55 07/01/19 09:55 07/01/19 09:55 - Physical Exam General Appearance: Yes: Nourished, Appropriately Dressed. No: Apparent Distress HEENT: negative: Pale Conjunctivae Neck: positive: Normal Thyroid Respiratory/Chest: positive: Lungs Clear, Normal Breath Sounds. negative: Respiratory Distress, Accessory Muscle Use Cardiovascular: positive: Regular Rhythm, Tachycardia. negative: Murmur Gastrointestinal/Abdominal: positive: Soft, Tenderness (epigastric, luq, ruq) Musculoskeletal: negative: CVA Tenderness Extremity: positive: Normal Inspection Integumentary: positive: Normal Color, Warm, Moist Neurologic: positive: Normal Mood/Affect (ambulatory) ED Treatment Course - LABORATORY CBC & Chemistry Diagram: 07/01/19 10:12 07/01/19 10:20 - ADDITIONAL ORDERS Additional order review: Laboratory Results 07/01/19 10:20 Lipase 213 07/01/19 10:12 RBC 5.06 MCV 79.6 L MCHC 32.9 RDW 13.3 MPV 9.7 Neutrophils % 51.1 Lymphocytes % 40.2 H Monocytes % 5.0 Eosinophils % 3.2 Basophils % 0.5 - Medications Given in the ED: ED Medications Discontinued Medications Generic Name Dose Route Start Last Admin Trade Name Freq PRN Reason Stop Dose Admin Pantoprazole Sodium 40 mg/ 100 mls @ 200 mls/hr 07/01/19 10:18 08/21/19 10:35 Sodium Chloride IVPB 07/01/19 10:47 200 mls/hr ONCE ONE Administration Ketorolac Tromethamine 30 mg 07/01/19 10:18 07/01/19 10:35 Toradol Injection - IVPUSH 07/01/19 10:19 30 mg ONCE ONE Administration Ondansetron HCl 4 mg 07/01/19 10:25 07/01/19 10:35 Zofran Injection IVPUSH 07/01/19 10:26 4 mg ONCE ONE Administration Medical Decision Making - Medical Decision Making 07/01/19 10:15 Chief complaint: Upper abdominal pain along with nausea for the past month. Started antibiotics for H. pylori last week by her PCP. Patient has no other complaints at this time Exam. Patient with epigastric right upper quadrant left upper quadrant tenderness with no CVA tenderness. Patient slightly tachycardic at 100. Plan: Labs, urine, Toradol, Zofran IV fluids and will consider imaging once labs are reviewed. 07/01/19 11:19 Laboratory Tests 07/01/19 07/01/19 07/01/19 09:07 09:07 09:07 WBC 6.7 Hgb 13.2 Hct 40.0 MCV 79.0 L Neutrophils % 48.5 Sodium 136 Potassium 4.1 Chloride 98 Carbon Dioxide 25 Anion Gap 13 BUN 10.0 Creatinine 0.7 Est GFR (CKD-EPI)AfAm 132.87 Est GFR (CKD-EPI)NonAf 114.64 Random Glucose 183 H Hemoglobin A1c % 8.2 H AST 107 H ALT 177 H Triglycerides 175 H Cholesterol 251 H Total LDL Cholesterol 173 H HDL Cholesterol 54 Total Amylase 44 Lipase TSH 4.01 H 07/01/19 07/01/19 10:12 10:20 WBC 7.4 Hgb Hct MCV Neutrophils % Sodium Potassium Chloride Carbon Dioxide Anion Gap BUN Creatinine Est GFR (CKD-EPI)AfAm Est GFR (CKD-EPI)NonAf Random Glucose Hemoglobin A1c % AST ALT Triglycerides Cholesterol Total LDL Cholesterol HDL Cholesterol Total Amylase Lipase 213 TSH 07/01/19 13:06 Patient states feeling moderate relief. Patient is pending a thyroid ultrasound ordered by Dr. michelle. Patient is currently menstruating. 07/01/19 13:07 Patient states began a Keto diet 3 days ago by wood miller secondary to elevated cholesterol triglycerides and LFTs 07/01/19 13:[address] Michelle and states wants to see patient in the office tomorrow anytime after 9 AM. He states will address elevated TSH, GI concerns, and adjust medications. Pt will be discharged home with Zofran. *DC/Admit/Observation/Transfer Diagnosis at time of Disposition: Abdominal pain - Discharge Dispostion Disposition: HOME - Referrals Referrals: Mil Michelle MD [Staff Physician] - - Patient Instructions Printed Discharge Instructions: DI for Abdominal Pain-Adult Additional Instructions: At this time you are recommended to follow-up with your wood miller tomorrow after 9 AM to discuss your elevated TSH liver function tests, and other labs. Please take Zofran as needed for nausea. Continue with diet as recommended from your wood miller - Post Discharge Activity
[2019-07-01 11:09] LABS: ALBUMIN 3.9 g/dl (3.4-5.0); BILIRUBIN,TOTAL 0.4 mg/dL (0.2-1); BLOOD UREA NITROGEN 9.7 mg/dL (7-18); CALCIUM 9.7 mg/dL (8.5-10.1); CREATININE 0.9 mg/dL (0.55-1.3); POTASSIUM 4.6 mmol/L (3.5-5.1); TOT PROT 7.7 g/dl (6.4-8.2)
[2019-07-01 11:36] LABS: EPI CELLS 16.1 /HPF (0-5/HPF); HYALINE CASTS 8 /lpf (0-8); URINE APPEARANCE TURBID; URINE BACTERIA 139.7 /hpf (NEGATIVE); URINE BILIRUBIN NEGATIVE (NEGATIVE); URINE COLOR ORANGE; URINE GLUCOSE (UA) NEGATIVE (NEGATIVE); URINE KETONE NEGATIVE (NEGATIVE); URINE LEUK ESTERASE 1+ (NEGATIVE); URINE NITRITE NEGATIVE (NEGATIVE); URINE PROTEIN 2+ (NEGATIVE); URINE RBC 264 /hpf (0-4); URINE WBC 7 /hpf (0-5)
[2019-07-01 13:37] VITALS: BP 135/91; PULSE 81
== END 2019-07-01 13:44 | disposition home or self-care (01) ==
LOC: JER 09:46
PROC: 3E0333Z Introduction of Anti-inflammatory into Peripheral Vein, Percutaneous Approach (ICD-10-PCS; principal; 2019-07-01)
PROC: 3E033GC Introduction of Other Therapeutic Substance into Peripheral Vein, Percutaneous Approach (ICD-10-PCS; 2019-07-01)
PROC: 3E0337Z Introduction of Electrolytic and Water Balance Substance into Peripheral Vein, Percutaneous Approach (ICD-10-PCS; 2019-07-01)
DX: R10.10 Upper abdominal pain, unspecified (principal)
CPT/HCPCS: 36415; 76705-TC; 80053; 81003; 83690; 84703; 85025; 96361; 96365; 96375; 99283-25; J7030

== ENCOUNTER 2021-01-04 04:27 | Day surgery (SDC) | payer OTHER ==
[2021-01-03 17:40] VITALS: BMI 30.9
[2021-01-04] MEDS ORDERED: oxyCODONE HCL 5 MG TABLET PO PRN (09:45)
[2021-01-04] MEDS ORDERED: LACTATED RINGERS SOLUTION 1,000 ML IV SCH (09:45)
[2021-01-04] MEDS ORDERED: ONDANSETRON 4 MG/2 ML VIAL IVPUSH PRN (09:45)
[2021-01-04] MEDS ORDERED: LIDOCAINE HCL/PF 2% SDV 5ML VIAL ONE (10:22)
[2021-01-04] MEDS ORDERED: DEXAMETHASONE SOD PHOSPHATE 4 MG/1 ML VIAL ONE (10:22)
[2021-01-04] MEDS ORDERED: PROPOFOL 20 ML ONE (10:23)
[2021-01-04] MEDS ORDERED: MIDAZOLAM HCL 2 MG/2 ML SINGLE DOSE VIAL ONE (10:23)
[2021-01-04] MEDS ORDERED: ceFAZolin SODIUM 1 GM VIAL ONE (10:44)
[2021-01-04] MEDS ORDERED: OXYTOCIN 10 UNITS/ML VIAL ONE (10:49)
[2021-01-04] MEDS ORDERED: IBUPROFEN 400 MG TABLET (FP) PO PRN (11:04)
[2021-01-04] MEDS ORDERED: ACETAMINOPHEN 325 MG TABLET (FP) PO PRN (11:04)
[2021-01-04] MEDS ORDERED: KETOROLAC TROMETHAMINE 30 MG/1 ML VIAL IVPUSH ONE (12:00)
[2021-01-04 13:30] VITALS: TEMP 98.2
[2021-01-04] MEDS ORDERED: oxyCODONE HCL 5 MG TABLET ONE (13:47)
[2021-01-04] MEDS ORDERED: oxyCODONE HCL 5 MG TABLET PO ONE (13:50)
[2021-01-04 15:24] VITALS: BP 111/58; PULSE 92
[2021-01-04] MEDS ORDERED: IBUPROFEN 400 MG TABLET (FP) PO ONE ×2 (15:28→15:30)
== END 2021-01-04 16:16 | disposition home or self-care (01) ==
LOC: JASU-SURG 04:27
PROVIDERS: ATTEND Specialist
PROC: 10D17ZZ Extraction of Products of Conception, Retained, Via Natural or Artificial Opening (ICD-10-PCS; principal; 2021-01-04 10:00)
DX: O02.1 Missed abortion (principal)
CPT/HCPCS: 86850; 86900; 86901; 94760

== ENCOUNTER 2022-02-21 06:30 | Inpatient (IN) | payer OTHER ==
[2022-02-21 07:41] VITALS: BMI 37.2
[2022-02-21] MEDS ORDERED: ELECTROLYTE-148 SOLN 500 ML IV ONE (07:51)
[2022-02-21] MEDS ORDERED: CITRIC ACID/SODIUM CITRATE 30 ML UNIT-DOSE CUP PO ONE (08:00)
[2022-02-21] MEDS ORDERED: morphine SULFATE/PF 1 MG/2 ML (2cc Syringe - QUVA) ONE (08:15)
[2022-02-21] MEDS: ACETAMINOPHEN 1000 MG/100 ML BAG IVPB PRN ×2 (08:47→17:50)
[2022-02-21] MEDS ORDERED: ACETAMINOPHEN INJECTION 100 ML IVPB ONE (08:47)
[2022-02-21] MEDS ORDERED: ceFAZolin SODIUM 1 GM VIAL ONE (08:52)
[2022-02-21] MEDS ORDERED: KETOROLAC TROMETHAMINE 30 MG/1 ML VIAL ONE (08:52)
[2022-02-21] MEDS ORDERED: OXYTOCIN 10 UNITS/ML VIAL ONE (08:52)
[2022-02-21] MEDS ORDERED: ONDANSETRON 4 MG/2 ML VIAL ONE (08:52)
[2022-02-21] MEDS ORDERED: ACETAMINOPHEN 325 MG TABLET (FP) PO PRN (09:04)
[2022-02-21] MEDS ORDERED: SENNOSIDES/DOCUSATE COMBO (SENNA PLUS) TABLET (UD) PO PRN (09:04)
[2022-02-21] MEDS ORDERED: ONDANSETRON 4 MG/2 ML VIAL IVPB PRN (09:04)
[2022-02-21] MEDS ORDERED: IBUPROFEN 800 MG/8 ML IJ IVPB PRN (09:04)
[2022-02-21] MEDS ORDERED: OXYTOCIN 20 UNITS in 0.9% NS 20 UNIT/1,000 ML INFUS.BAG IV SCH (09:15)
[2022-02-21] MEDS ORDERED: LABETALOL HCL 200 MG TABLET (FP) ONE (09:50)
[2022-02-21] MEDS: LABETALOL HCL 200 MG TABLET (FP) PO SCH ×2 (09:54→21:10)
[2022-02-21] MEDS: CEFAZOLIN 2 GM in DEXTROSE 5%-WATER - 100 ML IVPB SCH ×2 (10:00→18:19)
[2022-02-21] MEDS ORDERED: OXYTOCIN 20 UNITS in 0.9% NS 20 UNIT/1,000 ML INFUS.BAG IV ONE (10:16)
[2022-02-21] MEDS ORDERED: NIFEdipine 10 MG CAPSULE (FP) ONE (10:56)
[2022-02-21] MEDS ORDERED: IBUPROFEN 800 MG/8 ML IJ IVPB ONE (11:23)
[2022-02-21] MEDS ORDERED: NIFEdipine 10 MG CAPSULE (FP) PO ONE (12:15)
[2022-02-21] MEDS: oxyCODONE HCL 5 MG TABLET PO PRN (23:45)
[2022-02-21] MEDS: SIMETHICONE 80 MG TAB.CHEW (FP) PO PRN (23:45)
[2022-02-22] MEDS: IBUPROFEN 600 MG TABLET (FP) PO PRN (05:54)
[2022-02-22] MEDS: SIMETHICONE 80 MG TAB.CHEW (FP) PO PRN ×2 (05:55→20:55)
[2022-02-22] MEDS ORDERED: CEFAZOLIN 2 GM in DEXTROSE 5%-WATER - 100 ML IVPB ONE (06:30)
[2022-02-22 08:39] LABS: BASO % 0.2 % (0-2.0); EOS % 2.4 % (0-4.5); HEMATOCRIT 23.9 % (32.4-45.2); HEMOGLOBIN 7.8 GM/dL (10.7-15.3); LYMPH % 38.6 % (8-40); MCH 25.9 pg (25.7-33.7); MCHC 32.8 g/dl (32.0-36.0); MEAN CELL VOLUME 78.9 fl (80-96); MEAN PLT VOLUME 10.2 fl (7.5-11.1); MONO % 3.9 % (3.8-10.2); NEUT % 54.9 % (42.8-82.8); PLATELET COUNT 206 10^3/uL (134-434); RBC 3.03 M/mm3 (3.60-5.2); RDW 13.6 % (11.6-15.6); WHITE BLOOD COUNT 8.3 K/mm3 (4.0-10.0)
[2022-02-22] MEDS ORDERED: BISACODYL 10 MG SUPP.RECT RC PRN (09:04)
[2022-02-22] MEDS: LABETALOL HCL 200 MG TABLET (FP) PO SCH ×2 (10:23→22:00)
[2022-02-22] MEDS: PRENATAL VITAMINS W/ FOLIC ACID TABLET (FP) PO SCH (10:42)
[2022-02-22] MEDS: oxyCODONE HCL 5 MG TABLET PO PRN ×3 (10:42→20:55)
[2022-02-22 20:42] LABS: EPI CELLS 13 /uL (0-25.1); HYALINE CASTS 0 /uL (0-3.1); URINE APPEARANCE CLEAR; URINE BACTERIA 9 /uL (0-1359); URINE BILIRUBIN NEGATIVE (NEGATIVE); URINE COLOR YELLOW; URINE GLUCOSE (UA) NEGATIVE (NEGATIVE); URINE KETONE NEGATIVE (NEGATIVE); URINE LEUK ESTERASE TRACE (NEGATIVE); URINE NITRITE NEGATIVE (NEGATIVE); URINE PROTEIN NEGATIVE (NEGATIVE); URINE RBC 2165 /uL (0-23.9); URINE UROBILINOGEN 0.2 mg/dL (0.2-1.0); URINE WBC 29 /uL (0-25.8)
[2022-02-23] MEDS: oxyCODONE HCL 5 MG TABLET PO PRN (02:54)
[2022-02-23] MEDS: SIMETHICONE 80 MG TAB.CHEW (FP) PO PRN (02:54)
[2022-02-23] MEDS ORDERED: PRENATAL VITAMINS W/ FOLIC ACID TABLET (FP) PO SCH (10:00)
[2022-02-23] MEDS: LABETALOL HCL 200 MG TABLET (FP) PO SCH (10:06)
[2022-02-23] MEDS: PRENATAL VITAMINS W/ FOLIC ACID TABLET (FP) PO SCH (10:06)
[2022-02-23] MEDS: IBUPROFEN 600 MG TABLET (FP) PO PRN (10:06)
[2022-02-23 11:40] VITALS: BP 143/93; PULSE 108; TEMP 98.3
[2022-02-24] MEDS ORDERED: PATIENT'S OWN MEDICATION (NON-FORMULARY) (Prenatal No122/Iron/Folic Acid [Prenatal Multi T PO SCH (10:00)
== END 2022-02-23 14:49 | disposition home or self-care (01) | DRG 540 ==
LOC: JLDR 06:30 → J3W 11:53
PROVIDERS: ADMIT Specialist; ATTEND Specialist
PROC: 10D00Z1 Extraction of Products of Conception, Low, Open Approach (ICD-10-PCS; principal; 2022-02-21)
DX: O41.03X0 Oligohydramnios, third trimester, not applicable or unspecified (principal); O60.14X0 Preterm labor third trimester with preterm delivery third trimester, not applicable or unspecified; O14.94 Unspecified pre-eclampsia, complicating childbirth; Z3A.36 36 weeks gestation of pregnancy; Z37.0 Single live birth; Z98.84 Bariatric surgery status
CPT/HCPCS: 36415; 80053; 81003; 82962; 85025; 85027; 85610; 85730; 86780; 86850; 86900; 86901; 87086; 87389; 88307-TC; C9803-CS; U0003; U0005

== ENCOUNTER 2024-12-30 05:17 | Day surgery (SDC) | payer OTHER ==
[2024-12-25 13:50] VITALS: BMI 31.8
[2024-12-30] MEDS ORDERED: METHYLENE BLUE 50 MG/10 ML AMPUL ONE (10:29)
[2024-12-30] MEDS ORDERED: MIDAZOLAM HCL 2 MG/2 ML SINGLE DOSE VIAL ONE (10:31)
[2024-12-30] MEDS ORDERED: ROCURONIUM BROMIDE 50 MG/5 ML SYRINGE ONE (10:31)
[2024-12-30] MEDS ORDERED: PROPOFOL 20 ML ONE (10:31)
[2024-12-30] MEDS: ceFAZolin 2 GRAM PREMIX BAG IVPB ONE ×2 (11:10)
[2024-12-30] MEDS: BUPIVACAINE HCL/PF 0.5% (5MG/ML) 10 ML VIAL IJ ONE ×2 (11:18)
[2024-12-30] MEDS ORDERED: NEOSTIGMINE METHYLSULFATE 0.5 MG/1 ML - 10 ML MDV ONE (11:39)
[2024-12-30] MEDS: ONDANSETRON 4 MG/2 ML VIAL IVPUSH PRN (12:08)
[2024-12-30] MEDS ORDERED: ONDANSETRON 4 MG/2 ML VIAL ONE (12:08)
[2024-12-30] MEDS ORDERED: LACTATED RINGERS SOLUTION 1,000 ML IV SCH (12:15)
[2024-12-30] MEDS ORDERED: METOCLOPRAMIDE HCL INJECTION 10 MG/2 ML VIAL ONE (12:58)
[2024-12-30] MEDS: METOCLOPRAMIDE HCL INJECTION 10 MG/2 ML VIAL IVPUSH PRN (13:01)
[2024-12-30 13:44] VITALS: RESP 20
[2024-12-30 15:18] VITALS: BP 113/67; PULSE 96; TEMP 97
== END 2024-12-30 15:00 | disposition home or self-care (01) ==
LOC: JASU-SURG 05:17
PROVIDERS: ATTEND Specialist
PROC: 3E1P88X Irrigation of Female Reproductive using Irrigating Substance, Via Natural or Artificial Opening Endoscopic, Diagnostic (ICD-10-PCS; principal; 2024-12-30 10:00)
DX: D25.9 Leiomyoma of uterus, unspecified (principal); N97.1 Female infertility of tubal origin
CPT/HCPCS: 81025; 94760; Q9968